=== PATIENT | male | born 1985 | race Caucasian/White ===

== ENCOUNTER → 2021-12-03 | Outpatient (CLI) | payer OTHER ==
[~2021-12-03] MED LIST: LIDOCAINE 1% MDV 20ML VIAL As Ordered ONE
[2021-12-03 10:35] VITALS: BP 148/93
== END ==
LOC: M IRPRO 09:42
PROVIDERS: ATTEND Otolaryngology
DX: R59.9 Enlarged lymph nodes, unspecified (principal)